=== PATIENT | male | born 1975 | race Caucasian/White ===

== ENCOUNTER 2022-08-20 20:27 | Emergency (ER) | payer BC, SELFPAY ==
[2022-08-20 20:28] VITALS: BP 140/94; PULSE 87; RESP 15; TEMP 36.7; O2SAT 97; BMI 32.1
--- NOTE | 2022-08-20 20:53 | CT_ITS ---
STUDY: CT CHEST, ABDOMEN T PELVIS WITH CONTRAST REASON FOR EXAM: Male, 47 years old. fall/trauma left RADIATION DOSAGE (If Supplied By Facility): CTDIvol = ( 15.56 ) mGy, DLP = ( 1530.06 ) mGycm TECHNIQUE: Transaxial imaging was performed following intravenous administration of IV 100mL Isovue-370. Individualized dose optimization techniques were used for this CT. COMPARISON: No relevant priors. FINDINGS: CHEST Bibasilar subsegmental atelectasis. There is no demonstrated pleural abnormality. Clinical data coronary artery disease. Normal mediastinum. Normal hilar regions. Normal unenhanced pulmonary arteries. Normal aorta arch and descending thoracic aorta. Normal osseous structures. There is no demonstrated abnormality of the visualized upper abdomen. ABDOMEN The visualized lung bases are unremarkable. The visualized portions of the heart are within normal limits. Peripherally enhancing lesion right lobe of the liver measuring up to 2.6 cm in diameter. Normal gallbladder and extrahepatic biliary system. Normal spleen. Normal pancreas. Normal bilateral adrenal glands. Normal right kidney. Normal left kidney. Normal visualized stomach. Normal small intestine. Increased stool throughout the colon. Colonic diverticulosis. The appendix is visualized and appears normal. Normal abdominal aorta. Normal inferior vena cava. Normal retroperitoneum. Fat-containing umbilical hernia. Normal osseous structures. PELVIS Normal urinary bladder. Normal visualized small intestine. Normal visualized colon. There is no pelvic fluid. There is no pelvic lymphadenopathy or mass lesion. Normal visualized pelvic arteries. Normal abdominal wall. Normal osseous structures. CT/CT Chest, Abd, Pel w/Contrast IMPRESSION: Incidental hepatic lesion. Recommend follow-up nonemergent hepatic MRI. Normal enhanced CT chest, abdomen T pelvis examination. Electronically Signed: Ehsan Mckee MD at 22:28 EDT Reading Location ID and State: [facility] / [place] , Service support ,
--- NOTE | 2022-08-20 20:57 | ED.VIS.FALL ---
HPI HPI - Fall History of Present Illness Chief Complaint: Fall Informant: patient Occured/Mechanism Occurred: Today Fall from Height (ft): 10 Pain/Injury Pain Location: chest and abdomen Worsened by: movement, breathing Narrative Narrative: Patient was on a ladder trying to get a tree off of his house. The tree fell off of the house while he was on the ladder, taking the ladder out, causing him to fall about 10 feet, landing against the tree on the ground versus his left side. He sustained some abrasions to his left forearm, he does not have any pain there, but he is worried about the bruising to his left side that hurts. No injury to his legs, no trouble walking. Not short of breath but hurts to take a deep breath or to move. Not anticoagulated, healthy otherwise. PFSH PFSH Medical History no medical history no medical history Allergy/AdvReac Type Severity Reaction Status Date / Time No Known Allergies Allergy Verified 08/20/22 20:35 Surgical History (Updated 08/20/22 @ 21:16 by April Ramsey) H/O shoulder surgery Social History (Updated 08/20/22 @ 21:16 by April Ramsey) number of children: 4 Smoking Status: Never smoker ROS ROS ED Constitutional Constitutional ED: Denies chills or fever(s) Eyes Eyes: Denies change in vision or diplopia ENT ENT ED: Denies ear pain, epistaxis, facial pain or rhinorrhea Cardiovascular Cardiovascular: Reports other Details: Left lateral rib pain ; Denies palpitations Respiratory/Chest Respiratory/Chest: Denies cough or dyspnea Gastrointestinal Gastrointestinal: Denies abdominal pain, diarrhea, melena, nausea or vomiting Genitourinary Genitourinary ED: Reports flank pain and other Details: Has not urinated yet since the fall ; Denies dysuria or hematuria Musculoskeletal Musculoskeletal: Denies back pain, extremity pain or neck pain Integumentary Denies abscess, Abrasions, laceration or rash Neurologic Neurologic: Denies confusion, headache(s), paresthesias or weakness EXAM Physical Exam Const Vital Signs: 08/20/22 20:28 08/20/22 21:47 Temperature 98.1 F Temperature Source Temporal Pulse Rate 87 Respiratory Rate 15 Respiratory Effort Normal Respiratory Depth Normal Respiratory Pattern Normal Blood Pressure 140/94 H Blood Pressure Mean 109 Pulse Ox 97 Oxygen Delivery Method Room Air Room Air Positive well nourished and well developed General Appearance ED: well developed and NAD HEENT Reports nasal mucous membranes and turbinates normal atraumatic Face and Sinus: Negative for facial tenderness Eyes PERRL and EOMs intact bilaterally Visual Acuity: other Other Details: no entrapment or pain with extraocular movements Neck full ROM and supple General: Negative for tenderness Chest Wall inspection of chest normal and palpation of chest normal Chest: symmetrical chest wall rise; Negative for crepitus or tenderness Resp normal respiratory effort and clear to auscultation bilaterally Percussion: other equal BS bilat Cardio no murmurs Rate: regular rate Rhythm: regular rhythm GI normal to inspection, nondistended, normoactive bowel sounds and soft to palpation GI Narrative: Tender left upper quadrant below the costal margin. No guarding or rebound. Back/Spine normal ROM Cervical Spine: Negative for cervical spine tenderness Thoracic Spine / Upper Back: Negative for thoracic spinal tenderness Lumbar Spine / Lower Back: Negative for lumbar spinal tenderness Extremity full ROM General Extremety ED: Negative for tenderness Neuro oriented x3, CN's II-XII intact bilaterally, moves all extremities, no focal motor deficits and no sensory deficits noted Jerome Coma Scale: document GCS findings Spontaneous Obeys Commands Oriented 15 Sensorium / Orientation: awake and alert Psych mental status grossly normal and thought process normal Skin Skin Narrative: Multiple superficial abrasions left ulnar aspect of the forearm, nontender full range of motion. Contusion with abrasion left flank below the costal margin, contusion in the left mid axillary line along the lower rib cage, tender no subcutaneous emphysema. Lesions: no lesions Rashes: no rashes MDM MDM MDM Narrative Medical decision making narrative: Given the patient's tender left subcostal, as well as over the lateral mid rib cage, I think the patient needs a CT of the abdomen/pelvis to rule out splenic injury which would be the most likely organ injury in this context. Given that I am sending him to CT for the abdomen, I also performed CT of the chest. I reviewed the images, he does not appear to have any significant internal injury, radiology was in agreement and I agree with their report. I offered patient analgesic, he declined but excepted an ice pack, he is reassured, he does not appear to have any extremity injuries that need to be x-rayed, and he did not hit his head and has no symptoms of a head injury. Stable for discharge home close outpatient follow-up as needed. Lab Data Attestation: I reviewed the patient's lab results. Labs: Laboratory Results - last 24 hr 08/20/22 08/20/22 08/20/22 20:10 21:10 21:10 WBC 9.1 RBC 4.94 Hgb 15.5 Hct 43.7 MCV 88.5 MCH 31.4 MCHC 35.5 RDW Std Deviation 39.4 RDW Coeff of [place] 12.1 Plt Count 168 MPV 9.2 Immature Gran % (Auto) 0.300 Neut % (Auto) 59.5 Lymph % (Auto) 26.6 Caroline % (Auto) 11.0 H Eos % (Auto) 2.3 Baso % (Auto) 0.3 Absolute Neuts (auto) 5.4 Absolute Lymphs (auto) 2.43 Nucleated RBC % 0 Sodium 141 Potassium 3.6 Chloride 106 Carbon Dioxide 27.0 Anion Gap 8 BUN 26 H Creatinine 1.08 Estim Creat Clear Calc 102.70 Est GFR (MDRD) Af Amer 94 Est GFR (MDRD) Non-Af 77 BUN/Creatinine Ratio 24.1 H Glucose 100 Calcium 8.6 Urine Color Yellow Urine Clarity Clear Urine pH 5.0 Ur Specific [place] 1.025 Urine Protein 15 H Urine Glucose (UA) Normal Urine Ketones 5 H Urine Occult Blood Negative Urine Nitrite Negative Urine Bilirubin Negative Urine Urobilinogen Normal Ur Leukocyte Esterase 25 H Radiography Diagnostic Testing: Clinical Impression(s) from Imaging Studies Chest/Abdomen/Pelvis CT 08/20/22 20:53 IMPRESSION: Incidental hepatic lesion. Recommend follow-up nonemergent hepatic MRI. Normal enhanced CT chest, abdomen T pelvis examination. Electronically Signed: Ehsan Mckee MD at 22:28 EDT , Discharge Plan Triage Chief Complaint: Fall ED Provider: Isidro Russo Dx/Rx/DC Orders Clinical Impression: Contusion of left chest wall, Contusion of abdominal wall, Fall from ladder Instructions: ED Rib Contusion or Minor Fracture Primary Care Provider: Joselito Astorga Referrals: Joselito Astorga MD [Primary Care Provider] - As Needed Disposition Disposition: Home, Self Care
[2022-08-20 21:15] LABS: Mucous, Urine 0 SEEN /hpf (<or=2+); Red Blood Cells-Urine 0 SEEN /hpf (0-5); Squamous Epithelial Cells - UA 0 SEEN /hpf (0-5)
[2022-08-20 21:40] LABS: Absolute Lymphocyte Count 2.43 X10^3/uL (0.83-4.51); Absolute Neutrophil Count 5.4 X10^3/uL (2.0-7.7); Basophil# 0.03 X10^3/uL; Basophil% 0.3 % (0-1); Eosinophil# 0.21 X10^3/uL; Eosinophils% 2.3 % (0-5); Hematocrit 43.7 % (40-54); Hemoglobin 15.5 g/dL (13.0-16.5); Lymphocyte # 2.43 X10^3/ul (0.83-4.51); Lymphocyte % 26.6 % (19-41); Mean Corp Hgb Conc 35.5 g/dL (32-36); Mean Corpuscular Hgb 31.4 pg (27.0-32.0); Mean Corpuscular Volume 88.5 fL (80-94); Mean Platelet Vol. 9.2 fl (6.2-12.0); NRBC Flagged by Analyzer 0 % (0-5); Neutrophil # 5.43 X10^3/uL (2.7-7.7); Neutrophil % 59.5 % (47-70); Platelet Count 168 K/mm3 (150-450); RBC Distribution Width CV 12.1 % (11.6-14.6); RBC Distribution Width SD 39.4 fl (35.1-43.9); Red Blood Count 4.94 M/mm3 (4.6-6.2); White Blood Count 9.1 K/mm3 (4.4-11.0)
[2022-08-20 22:07] LABS: Anion Gap 8 (5-15); BUN 26 mg/dL (7-18); BUN/Creat Ratio 24.1 RATIO (10-20); Calcium,Total 8.6 mg/dL (8.5-10.1); Chloride 106 mmol/L (98-107); Creatinine, Serum 1.08 mg/dL (0.70-1.30); EST Glomerular Filtration Rate 77 mL/min (>60); Est Glom Filt Rate - Afr Amer 94 mL/min (>60); Glucose 100 mg/dL (74-106); Potassium 3.6 mmol/L (3.5-5.1); Sodium Level 141 mmol/L (136-145)
[2022-08-20 22:08] LABS: Color, Urine Yellow (Yellow); Glucose, Dipstick Normal (Normal); Ketone-Dipstick 5 mg/dl (Negative); Leukocyte Esterase-Dipstick 25 /ul (Negative); Nitrite-Dipstick Negative (Negative); Occult Blood-Urine Negative /ul (Negative); Protein-Dipstick 15 mg/dl (Negative); Specific Gravity, Urine 1.025 (1.002-1.030); Urine Bilirubin Dipstick Negative (Negative); Urine Clarity Clear (Clear); Urine Urobilinogen Normal (Normal)
[2022-08-20 22:56] VITALS: PULSE 75; RESP 18; O2SAT 99
[2022-08-20 23:26] LABS: White Blood Cells 0-5 SEEN /hpf (0-5)
[2022-08-20 23:27] LABS: Bacteria RARE /hpf (None Seen); Hyaline Cast 0-5 SEEN /lpf (0-5)
== END 2022-08-20 22:56 | disposition home or self-care (01) ==
PROVIDERS: Emergency Provider Emergency Medicine; PCP Family Medicine; Visit Provider Emergency Medicine
DX: S20.212A Contusion of left front wall of thorax, initial encounter (principal); S30.1XXA Contusion of abdominal wall, initial encounter; W11.XXXA Fall on and from ladder, initial encounter
CPT/HCPCS: 71260; 74177; 80048; 81001; 85025; 99282; Q9967